=== PATIENT | female | born 1985 | race Caucasian/White ===

== ENCOUNTER 2017-04-22 08:04 | Emergency (ER) | payer OTHER ==
[2017-04-22 11:00] VITALS: BP 108/66
--- NOTE | 2017-04-22 11:01 | UC ---
Abdominal Pain Female HPI - HPI Summary HPI Summary: PT HAS HAD 2 MONTHS OF CRAMPY ABDOMINAL PAIN AND FATIGUE. FEELS BLOATED AND DISTENDED. IS UNABLE TO EAT MUCH DUE TO EARLY SATIETY AND NAUSEA. HAS LOST ABOUT 15 LBS UNINTENTIONALLY. HAS INTERMITTENT NIGHT SWEATS. CONSTIPATED FOR THE SAME PERIOD OF TIME. TOOK EXLAX LAST NIGHT AND HAD A BM BUT NOTHING FOR ABOUT A WEEK PRIOR. NORMALLY GOES DAILY IN THE MORNING. HAS HAD DAILY THROBBING FRONTAL PAULA FOR ABOUT A MONTH. PT HAS MIGRAINES BUT THEY ARE NOT DAILY AND THESE FEEL DIFFERENT. IS HAVING SOME UNUSUAL VAGINAL DISCHARGE AND SEX HAS BECOME INCREASINGLY UNCOMFORTABLE. LAST NIGHT WAS VERY PAINFUL. HAS SOME URINARY FREQUENCY BUT NO DYSURIA. [place] [facility] AND TRIED TO GET IN THERE BUT WAS NOT OFFERRED AN APPT UNTIL JUNE. SHE IS CONCERNED ABOUT CANCER SHE HAS A STRONG FAMILY HISTORY - OVARIAN, BREAST, COLON CANCER. - History of Current Complaint Chief Complaint: UCAbdominalPain Stated Complaint: ABD PAIN Time Seen by Provider: 04/22/17 09:58 Hx Obtained From: Patient Hx Last Menstrual Period: 03/28/17 Onset/Duration: Gradual Onset, Lasting Weeks, Still Present Timing: Constant Severity Initially: Moderate Severity Currently: Moderate Pain Intensity: 3 Pain Scale Used: 0-10 Numeric Location: Diffuse Radiates: No Character: Cramping Aggravating Factor(s): Food Alleviating Factor(s): Nothing Associated Signs and Symptoms: Positive: Diaphoresis, Constipation, Decreased Appetite, Vaginal Discharge, Nausea Allergies/Adverse Reactions: Allergies Allergy/AdvReac Type Severity Reaction Status Date / Time No Known Allergies Allergy Verified 04/22/17 08:30 Home Medications: Home Medications Gabapentin CAP(*) [Neurontin 400 mg CAP(*)] 1,200 mg PO QPM 04/22/17 [History Confirmed 04/22/17] Multivitamin [Multiple Vitamins] 1 tab PO DAILY 04/22/17 [History Confirmed ] Polyethylene Glycol 3350* [Miralax*] 1 packet PO DAILY 04/22/17 [History Confirmed 04/22/17] PMH/Surg Hx/FS Hx/Imm Hx Previously Healthy: Yes - Surgical History Surgical History: Yes Surgery Procedure, Year, and Place: LT BREAST - MASS- BIOPSY W/ CLIP. LT FOOT - BUNIONECTOMY. RHINOPLASTY. 2010 - BREAST IMPLANTS PLACED THEN 2014 - IMPLANTS REMOVED - Family History Family History: OVARIAN, BREAST, COLON CANCER - Social History Alcohol Use: Occasionally Substance Use Type: None Smoking Status (MU): Former Smoker - Immunization History Most Recent Tetanus Shot: UTD Review of Systems Constitutional: Fatigue ENT: Negative Respiratory: Negative Cardiovascular: Negative Gastrointestinal: Abdominal Pain, Nausea, Other - CONSTIPATED, EARLY SATIETY, BLOATING Genitourinary: Frequency Neurological: Headache All Other Systems Reviewed And Are Negative: Yes Physical Exam Triage Information Reviewed: Yes Appearance: Well-Appearing, No Pain Distress, Thin Vital Signs: Initial Vital Signs Temp 98.6 F 04/22/17 08:21 Pulse 85 04/22/17 08:21 Resp 20 04/22/17 08:21 BP 101/66 04/22/17 08:21 Pulse Ox 98 04/22/17 08:21 Vital Signs Reviewed: Yes Eyes: Positive: Conjunctiva Clear ENT: Positive: Hearing grossly normal, Pharynx normal, TMs normal Neck: Positive: Supple, Nontender, No Lymphadenopathy Respiratory Exam: Normal Cardiovascular Exam: Normal Abdomen Description: Positive: Soft, Distended, Other: - TTP LOWER ABDOMEN. NO REBOUND OR RIGIDITY. Negative: CVA Tenderness (R), CVA Tenderness (L) Bowel Sounds: Positive: Present Musculoskeletal: Positive: No Edema Neurological: Positive: Alert Psychological: Positive: Age Appropriate Behavior Skin: Negative: rashes Diagnostics - Laboratory Diagnostic Studies Completed/Ordered: URINE DIP SP. GR. 1.030, TRACE KETONES, TRACE LEUKS. URINE HCG NEG Abd Pain Female Course/Dx - Course Course Of Treatment: TO [facility] BY PRIVATE CAR. TAMIR REYES NOTIFIED - Differential Dx/Diagnosis Provider Diagnoses: LOWER ABDOMINAL PAIN, NOS Discharge - Discharge Plan Condition: Stable Disposition: OTHER Discharge Disposition Comment: TO [facility] BY PRIVATE CAR Patient Education Materials: Abdominal Pain (ED) Referrals: Tala Velasquez [Primary Care Provider] - If Needed Additional Instructions: GIVEN YOUR SYMPTOMS OF WORSENING ABDOMINAL PAIN, BLOATING, WEIGHT LOSS, EARLY SATIETY/NAUSEA, INTERMITTENT SWEATS AND FATIGUE WOULD RECOMMEND YOU GO DIRECTLY TO THE [facility] FROM HERE FOR FURTHER EVALUATION.
== END 2017-04-22 10:58 ==
LOC: UCEAST 08:04
DX: R10.30 Lower abdominal pain, unspecified (principal); N89.8 Other specified noninflammatory disorders of vagina; R11.0 Nausea; R61 Generalized hyperhidrosis; K59.00 Constipation, unspecified; Z32.02 Encounter for pregnancy test, result negative; Z87.891 Personal history of nicotine dependence
CPT/HCPCS: 81003; 84702; 87086; 99212; G0463

== ENCOUNTER 2017-04-22 11:15 | Emergency (ER) | payer OTHER ==
[2017-04-22 11:58] LABS: ABS Basophils 0.1 10^3/ul (0-0.2); ABS Eosinophils 0.1 10^3/ul (0-0.6); ABS Lymphocytes 1.5 10^3/ul (1.0-4.8); ABS Monocytes 0.4 10^3/ul (0-0.8); ABS Neutrophils 2.9 10^3/ul (1.5-7.7); ABS Nucleated RBC 0 10^3/ul; Eosinophil % 2.4 % (0-6); Hematocrit 42 % (35-47); Hemoglobin 14.4 g/dl (12.0-16.0); Lymphocyte % 29.7 % (25-47); Mean Corpuscular HGB Conc 35 g/dl (31-36); Mean Corpuscular Hemoglobin 33 pg (27-31); Mean Corpuscular Volume 96 fL (80-97); Mean Platelet Volume 8 um3 (7.4-10.4); Nucleated Red Blood Cells % 0; Platelet Count 154 10^3/ul (150-450); Red Blood Count 4.36 10^6/ul (4.0-5.4); Red Cell Distribution Width 13 % (10.5-15)
[2017-04-22 12:13] LABS: EGFR Non-African American 70.3 (>60)
--- NOTE | 2017-04-22 13:22 | ED ---
Abdominal Pain/Female - HPI Summary HPI Summary: 32 female presents to ED with complaints of lower abdominal discomfort and bloating that has been ongoing for the past few months. States she has not had a normal bowel movement in the past few months, only has very small, infrequent bowel movements. 2 days ago was last, and it was small. Denies blood. States lower abdominal pain feels like cramping "like menses" but isn't. States last menstrual cycle was mar 28 and she is taking OCP. Took urine and was negative. No vaginal bleeding or discharge, other than a clear discharge. States she came in today because she had pain with sex last night. Dempsey became sharp and last a half hour or so. Admits to urinary urgency and frequency however no burning, blood or discharge. No known PMHx other than migraine and guilliane barre however has not had flare in a while. Migraines have been more frequent and increasing symptoms lately, of side noted. No medications have been tried other than preventative meds she takes daily for migraine. No other complaints. No PMHx. Denies vomiting, nausea and fever/chills. States she has decreased appetite due to feeling so bloated and "like my stomach is 16 weeks ". Also states she has lost weight. No recent trauma or injury. - History of Current Complaint Chief Complaint: EDAbdPain Stated Complaint: ABD PAIN-CC TRANSFER Time Seen by Provider: 04/22/17 11:27 Hx Obtained From: Patient Hx Last Menstrual Period: 03/28/17 ?: No Onset/Duration: Sudden Onset, Lasting Weeks, Still Present, Worse Since Timing: Constant Severity Initially: Mild Severity Currently: Mild Pain Intensity: 2 Pain Scale Used: 0-10 Numeric Location: Suprapubic Radiates: No Character: Sharp - 30 minutes yesterday then resolved, Cramping Aggravating Factor(s): Nothing, Food, Other: - sex Alleviating Factor(s): Nothing, Spontaneous Resolution Associated Signs and Symptoms: Positive: Constipation, Urinary Symptoms - urgency, Decreased Appetite. 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 LT FOOT - BUNIONECTOMY. RHINOPLASTY. 2010 - BREAST IMPLANTS PLACED THEN 2013 - IMPLANTS REMOVED - Immunization History Immunizations Up to Date: Yes Infectious Disease History: No Infectious Disease History: Reports: Traveled Outside the [place] in Last 30 Days - Family History Known Family History: Positive: None - reviewed & noncontributory Family History: OVARIAN, BREAST, COLON CANCER - Social History Alcohol Use: Occasionally Hx Substance Use: No Substance Use Type: Reports: None Hx Tobacco Use: Yes - 03/03 ppd Smoking Status (MU): Former Smoker Review of Systems Constitutional: Negative Cardiovascular: Negative Respiratory: Negative Positive: Abdominal Pain, Other - constipation Positive: see HPI, frequency, urgency, other - dysparenuia Musculoskeletal: Negative Skin: Negative Neurological: Negative All Other Systems Reviewed And Are Negative: Yes Physical Exam Triage Information Reviewed: Yes Vital Signs On Initial Exam: Initial Vitals Temp Pulse Resp BP Pulse Ox 97.9 F 73 18 114/69 100 04/22/17 11:18 04/22/17 11:18 04/22/17 11:18 04/22/17 11:18 04/22/17 11:18 Vital Signs Reviewed: Yes Appearance: Positive: Well-Appearing, No Pain Distress, Well-Nourished Skin: Positive: Warm, Skin Color Reflects Adequate Perfusion, Dry. Negative: Cold, Numb, Cyanosis @, Pale, Erythema @ Head/Face: Positive: Normal Head/Face Inspection ENT: Positive: Hearing grossly normal, Pharynx normal, TMs normal, Uvula midline. Negative: Tonsillar swelling, Tonsillar exudate, Sinus tenderness Neck: Positive: Supple, Nontender, No Lymphadenopathy Respiratory/Lung Sounds: Positive: Clear to Auscultation, Breath Sounds Present. Negative: Rales, Rhonchi, Wheezes Cardiovascular: Positive: Normal, RRR, Pulses are Symmetrical in both Upper and Lower Extremities. Negative: Murmur, Rub Abdomen Description: Positive: Distended, Other: - tender upon palpation of suprapubic area. Negative: No Organomegaly, Soft, CVA Tenderness (R), CVA Tenderness (L), Guarding, McBurney's Point Tenderness, Peritoneal Signs Bowel Sounds: Positive: Present Pelvic Exam: Positive: external exam normal, speculum exam normal, bimanual exam normal, no cerv. motion tender, no masses, tender uterus. Negative: active bleeding, blood, cervicitis, discharge, lesions, tender adnexa Musculoskeletal: Positive: Normal, Strength/ROM Intact Neurological: Positive: Normal, Sensory/Motor Intact, Alert, Oriented to Person Place, Time Diagnostics - Vital Signs Vital Signs Temp Pulse Resp BP Pulse Ox 04/22/17 11:18 97.9 F 73 18 114/69 100 - Laboratory Lab Results: Lab Results 04/22/17 04/22/17 04/22/17 Range/Units 11:44 11:44 11:44 WBC 5.0 (3.5-10.8) 10^3/ul RBC 4.36 (4.0-5.4) 10^6/ul Hgb 14.4 (12.0-16.0) g/dl Hct 42 (35-47) % MCV 96 (80-97) fL MCH 33 H (27-31) pg MCHC 35 (31-36) g/dl RDW 13 (10.5-15) % Plt Count 154 (150-450) 10^3/ul MPV 8 (7.4-10.4) um3 Neut % (Auto) 58.3 (38-83) % Lymph % (Auto) 29.7 (25-47) % [place] % (Auto) 8.2 H (0-7) % Eos % (Auto) 2.4 (0-6) % Baso % (Auto) 1.4 (0-2) % Absolute Neuts (auto) 2.9 (1.5-7.7) 10^3/ul Absolute Lymphs (auto) 1.5 (1.0-4.8) 10^3/ul Absolute Monos (auto) 0.4 (0-0.8) 10^3/ul Absolute Eos (auto) 0.1 (0-0.6) 10^3/ul Absolute Basos (auto) 0.1 (0-0.2) 10^3/ul Absolute Nucleated RBC 0 10^3/ul Nucleated RBC % 0 Sodium 137 (133-145) mmol/L Potassium 4.0 (3.5-5.0) mmol/L Chloride 104 (101-111) mmol/L Carbon Dioxide 25 (22-32) mmol/L Anion Gap 8 (2-11) mmol/L BUN 13 (6-24) mg/dL Creatinine 0.93 (0.51-0.95) mg/dL Est GFR ( Amer) 90.4 (>60) Est GFR (Non-Af Amer) 70.3 (>60) BUN/Creatinine Ratio 14.0 (8-20) Glucose 82 (70-100) mg/dL Lactic Acid 0.5 (0.5-2.0) mmol/L Calcium 9.5 (8.6-10.3) mg/dL Total Bilirubin 0.80 (0.2-1.0) mg/dL AST 18 (13-39) U/L ALT 12 (7-52) U/L Alkaline Phosphatase 36 (34-104) U/L C-Reactive Protein < 1.00 (< 5.00) mg/L Total Protein 7.5 (6.4-8.9) g/dL Albumin 4.7 (3.2-5.2) g/dL Globulin 2.8 (2-4) g/dL Albumin/Globulin Ratio 1.7 (1-3) Lipase 22 (11.0-82.0) U/L Beta HCG, Quant < 0.60 mIU/mL Result Diagrams: 04/22/17 11:44 04/22/17 11:44 Lab Statement: Any lab studies that have been ordered have been reviewed, and results considered in the medical decision making process. - Radiology abdomen Xray Interpretation: No Acute Changes - Flat and upright views of the abdomen demonstrates no free air. Hepatomegaly is noted. No dilated loops of bowel are noted. IMPRESSION: No free air or obstruction is noted. Stool throughout colon Radiology Interpretation Completed By: Radiologist - Ultrasound No standard instances Ultrasound Interpretation: No Acute Changes - Flat and upright views of the abdomen demonstrates no free air. Hepatomegaly is noted. No dilated loops of bowel are noted. IMPRESSION: No free air or obstruction is noted. Ultrasound Interpretation Completed By: Radiologist Re-Evaluation - Re-Evaluation First Eval Re-Evaluation Time: 14:30 Change: Unchanged - updated on labs and imaging, pelvic preformed. discussed possibility of diagnoses. agrees with plan and treatment Second Eval Re-Evaluation Time: 15:00 Abdominal Pain Fem Course/Dx - Course Course Of Treatment: ultrasound and xray obtained and negative other than pelvic congestion sydndrome and small left ovarian cyst. labs obtained and completely unremarkable. no medication given while in ED. pelvic exam preformed and normal. normal vitals. pelvic cultures obtained and pending results, just had STD testing and therefore did not need them repeated. normal exam otherwise. does appear bloated. some stool build up in abdominal xray noted. labs unremarkable. urinalysis unremarkable will await culture. no other complaints. no other emergent concerns at this time. did educate on pelvic congestion syndrome, constipation and further work up with GI for possible food allergy/sensitivity/IBS. aware of worsening signs and symptoms to watch out for. follow up, return if occur. could be multiple etiologies causing symptoms. will give lactulose to help with constipation, gas, bloating. educated on good diet and decreasing use of caffeine. - Diagnoses Differential Diagnosis: Positive: Constipation, Irritable Bowel Syndrome, Ovarian Cyst, Urinary Tract Infection, Other - IBS, pelvic congestion syndrome, dysparenuia Provider Diagnoses: Constipation, Bloating, Pelvic congestion syndrome, Dyspareunia Discharge - Discharge Plan Condition: Stable Disposition: HOME Prescriptions: Lactulose* 30 ml PO DAILY #3 bottle Patient Education Materials: Lactulose (By mouth), Constipation (DC), High Fiber Diet (ED), Fleet Enema (ED) Referrals: Tala Velasquez [Primary Care Provider] - Calvin Lange MD [Medical Doctor] - Harshad Morel MD [Medical Doctor] - Freddie Collins MD [Medical Doctor] - Additional Instructions: Please follow up with specialist for further testing at OBGYN (pelvic congestion syndrome), neuro (worsening migraines) and GI for troubles with bowels, bloating and appetite issues). Recommend increase fluid intake, avoiding caffeine and eating a high fiber diet to help with bowels. Try taking prescribed medication to help with constipation, may take a few days before working. Continue daily probiotic and eating vietnamese yogurt. Any new or worsening symptoms please return/seek medical attention promptly. Follow up with PCP.
--- NOTE | 2017-04-22 13:39 | RAD ---
Indication: Lower abdominal cramping. Flat and upright views of the abdomen demonstrates no free air. Hepatomegaly is noted. No dilated loops of bowel are noted. IMPRESSION: No free air or obstruction is noted.
[2017-04-22 13:50] LABS: Urine Appearance Clear; Urine Blood Negative (Negative); Urine Color Yellow; Urine Ketones 2+ (Negative); Urine Protein Negative (Negative); Urine Specific Gravity 1.023 (1.010-1.030); Urine Urobilinogen Negative (Negative)
--- NOTE | 2017-04-22 14:18 | RAD ---
INDICATION: Cramping dyspareunia. COMPARISON: There are no prior studies available for comparison. TECHNIQUE: Multiple real-time transvaginal images of the pelvis were obtained. FINDINGS: The uterus is normal in size, shape and echogenicity. The uterus measured 7.7 x 3.7 x 4.3 cm. The endometrial echo measured 0.5 cm in thickness. The right ovary measured 3.2 x 1.7 x 2.1 cm. The left ovary measured 4.1 x 2.2 x 2.3 cm. There is vascular flow within both ovaries. There is a complex cyst within the left ovary measuring 2.1 x 1.7 x 1.7 cm. There is a trace amount of free intraperitoneal fluid present. There are prominent vessels along the left lateral side of the uterus. IMPRESSION: 1. SMALL COMPLEX LEFT OVARIAN CYST. 2. PROMINENT PERIUTERINE VESSELS ON THE LEFT SIDE RAISING THE POSSIBILITY OF PELVIC CONGESTION SYNDROME.
[2017-04-22 15:43] VITALS: BP 94/66
== END 2017-04-22 15:39 | disposition home or self-care (01) ==
LOC: ED 11:15
DX: K59.00 Constipation, unspecified (principal); R14.0 Abdominal distension (gaseous); N94.89 Other specified conditions associated with female genital organs and menstrual cycle; N94.10 Unspecified dyspareunia; Z87.891 Personal history of nicotine dependence; N83.202 Unspecified ovarian cyst, left side; Z79.899 Other long term (current) drug therapy
CPT/HCPCS: 36415; 74019; 76830; 80053; 81003; 81015; 83605; 83690; 84702; 85025; 86140; 87480; 87510; 87660; 99283

== ENCOUNTER → 2017-07-19 07:58 | Day surgery (SDC) | payer OTHER ==
[~2017-07-19 07:58] MED LIST: Heparin 2 UNITS/ML IVPREMIX* 2,000 ML IV ONE; Iohexol 350 (CONTRAST) 200 ML MDV IV ONE; Ketorolac TAB * 10 MG TAB PO ONE; LORazepam TAB(*) 1 MG ONE; LORazepam TAB(*) 1 MG PO ONE; Lidocaine 1% INJ* 10 MG/ML 30 ML SDV ONE; Midazolam* 1 MG/ML 5 ML VIAL (5 MG) ONE; Polidocanol 1% 20 MG/2 ML AMP IV ONE; Scopolamine 1.5 mg* PATCH ONE; Scopolamine 1.5 mg* PATCH TRANSDERM ONE; ceFAZolin 1 GM* X ONE DOSE IVPB; fentaNYL* 50 MCG/ML 2 ML VIAL (100 MCG VIAL) ONE
[2017-07-19 09:04] LABS: ABS Basophils 0 10^3/ul (0-0.2); ABS Eosinophils 0.1 10^3/ul (0-0.6); ABS Monocytes 0.3 10^3/ul (0-0.8); ABS Neutrophils 1.5 10^3/ul (1.5-7.7); ABS Nucleated RBC 0 10^3/ul; Eosinophil % 3.9 % (0-6); Hematocrit 39 % (35-47); Hemoglobin 13.2 g/dl (12.0-16.0); Lymphocyte % 33.9 % (25-47); Mean Corpuscular HGB Conc 34 g/dl (31-36); Mean Corpuscular Hemoglobin 32 pg (27-31); Mean Corpuscular Volume 94 fL (80-97); Mean Platelet Volume 8.2 um3 (7.4-10.4); Nucleated Red Blood Cells % 0.1; Platelet Count 137 10^3/ul (150-450); Red Blood Count 4.09 10^6/ul (4.0-5.4); Red Cell Distribution Width 12 % (10.5-15); White Blood Count 2.9 10^3/ul (3.5-10.8)
[2017-07-19 09:12] LABS: INR 0.89 (0.77-1.02)
[2017-07-19 09:22] LABS: EGFR Non-African American 68.6 (>60)
--- NOTE | 2017-07-19 13:16 | PN ---
Progress Note - Progress Note Date of Service: 07/19/17 SOAP: Subjective: Mild pelvic cramping (2/10). No nausea. No shortness of breath or chest pain. Eating lunch. Sitting up. Objective: BP 113/69, pulse 60, resp 14, 98% (room air) NAD, AAO x 3 RRR, CTAB Right IJ venotomy is soft, minimally tender Dressing is CDI Mild tenderness elicited with palpation over low abdomen Assessment: 32 YOF s/p pelvic venography, cavogram, foam sclerosant embolization of left pelvic varicose veins and coil embolization of the refluxing left ovarian vein. Plan: 1. D/C to home. 2. Scopolamine patch to mastoid process to remain until 07/22/17 3. Toradol 5 mg po Q 8 hours x 3 days. 4. Interventional Radiology follow up will include RN call in 48 hours and clinic visit in 6 weeks and 6 months.
--- NOTE | 2017-07-19 15:34 | RAD ---
CPT II Codes: G9500 Procedure(s) performed: 1. Inferior vena cavogram. 2. Pelvic venography, specifically including the left renal vein, left ovarian vein and parauterine varicose veins. 3. Foam sclerosant embolization of pelvic varicose veins. 4. Coil embolization of the left ovarian vein. Date of service: July 19, 2017 Indication for procedure: Chronic, gravity dependent pelvic pain and dyspareunia characteristic of pelvic congestion syndrome. Comparison: MRV dated June 28, 2017 and pelvic ultrasound dated April 22, 2017 Contrast: 40 mL Omnipaque 300 Fluoroscopy Time: 12.3 minutes Vessels Accessed: Percutaneous access was obtained with ultrasound guidance in the right internal jugular vein in the antegrade direction towards the heart. Catheter venography, with the catheter tip located within the lumen of the following veins, was performed at the inferior vena cava, left renal vein, left ovarian vein and parauterine pelvic varicose veins. . Anesthesia: Conscious sedation with IV Fentanyl and Versed as well as local 1% lidocaine injected locally at the arteriotomy site. Conscious sedation time: Timeout: 1029 hours Case end: 1136 hours Total conscious sedation time: 1 hour and 7 minutes Additional medications: * Toradol 5 mg PO * Scopolamine 1.5 mg TD applied to the mastoid process * The patient received 1 mg of p.o. Ativan prior to the onset of the procedure. PROCEDURE NOTE AND INTRAPROCEDURAL IMAGING FINDINGS: Immediately prior to the procedure the patient signed consent after thoroughly discussing all risks, benefits and alternative therapies. The patient was positioned on the fluoroscopy table in the supine position and the right neck was prepped and draped according to standard sterile fashion. The bilateral groins were shaved and prepped and draped as well. Utilizing sonographic guidance, the right internal jugular vein was cannulated with an 18-gauge needle. An ultrasound image was saved. A 0.035" wire was slowly and smoothly advanced into the inferior vena cava under fluoroscopic imaging. With the wire securing percutaneous venous access, the needle was removed and a 5-Gambian SideArm access sheath was advanced under fluoroscopic control into the superior vena cava in the antegrade direction towards the heart securing access. Over the wire a 5-Gambian curved tip catheter was utilized to select the left renal vein. Utilizing a combination of 0.035" wire and 5-Gambian catheter the left renal vein was cannulated. The wire and catheter were then utilized to select the left ovarian vein and the wire was advanced to the lower pelvis. The catheter was advanced over the wire, the wire removed and the first of several pelvic venograms was performed confirming the presence of large pelvic varicose veins. Multiple large periuterine veins were seen with a small degree of flow from the left pelvis to the right. Much of the contrast injected was observed to stagnate in the pelvic varicose veins as the patient laid in the supine position. The short 5-Gambian sheath was exchanged for a 55 cm length, 5-Gambian sheath which was advanced under fluoroscopic control approximately to the junction of the left renal vein and left ovarian vein. A left renal venogram was performed through the side arm of the access sheath confirming caudal flow of venous blood from the renal vein down the ovarian vein and into pelvic varicosities. There appears to be adequate flow in the left renal vein which drains briskly into the IVC body caudal reflux down the left ovarian vein (again, the patient is in the supine position) was observed as well. There is no evidence of "nutritionalist syndrome". Over the wire a 4-Gambian curved tip catheter was advanced into the left periuterine varicose veins. At this point 2 mL Polidocanol 1% (Asclera) was mixed with a quantity of approximately 8 mL of air and utilizing a three-way stopcock the material was converted to foam sclerosant. Undiluted contrast was injected into the 4-Gambian catheter filling the pelvic varicosities with a volume of approximately 5 mL. Rapidly, the foam sclerosant was attached to the catheter and the recently injected contrast was displaced with an approximately equal volume of foam sclerosant. The 4-Gambian catheter was slowly retracted approximately 2 cm at a time and progressive stenosis and sclerosing of the left pelvic varicosities was observed. The process of injecting dilute contrast and then displacing the contrast with an approximate equal volume of foam sclerosant was repeated until the tip of the 4-Gambian catheter was at the lower margin of the left sacroiliac joint. At no time during the procedure to the patient report any chest pain, shortness of breath or acute change of mental status. After waiting approximately 3 minutes, contrast gently injected in the left ovarian vein approximately at the level of the lower quarter SI joint shows reduction in volume of the pelvic varicosities status post foam sclerosant injection. The 4-Gambian catheter was exchanged for a 5-Gambian curved tip catheter and this catheter was used to deploy metallic coils beginning just above the lower margin of the left SI joint extending to the mid-level L4 vertebral body. A small amount of flow was still seen in the main ovarian vein. Contrast injection at the L3 level as well as filling of small varicoid collateral veins around the left ovarian vein. Further coil embolization was performed with attention to occlude the collateralized varicose veins extending from the left ovarian vein. A total of four [employer] Interlock coils were deployed beginning at the level just above the lower margin of the left sacroiliac joint extending to just below the level of the superior endplate of the L3 vertebral body. The column of coils was created to approximately 2.9cm below the branch point with the left renal vein. At this point venography through the side arm of the sheath, the tip now in the left renal vein immediately superior to the origin of the left ovarian vein, demonstrated brisk flow through the renal vein into the inferior vena cava. There is no venous flow caudally down the ovarian vein or any other collateral branch veins. Satisfied that the left ovarian vein had been treated, the access sheath was repositioned to the tip was approximately at the level of the inferior endplate of the L3 vertebral body and a cavogram was performed showing the IVC to be briskly patent. There is no reflux in the right ovarian vein. In the bilateral pelvis there is trace filling of small veins but these do not appear to lead to any substantial filling of pelvic varicosities. It was determined at this point that embolization was sufficient and the 5-Gambian SideArm sheath. Gentle manual pressure was held at the right internal jugular venotomy site for approximately 7 minutes. Bleeding was controlled and the site was dressed with sterile gauze. The patient tolerated the procedure well and was transferred to interventional radiology holding bay for standard post procedural observation. SUMMARY OF PROCEDURE, IMAGING FINDINGS AND INTERVENTIONS PERFORMED: 1. Diagnostic studies performed: * Venous access was obtained at the right internal jugular vein in the antegrade direction (i.e. towards the heart) with ultrasound guidance. A sonographic image was recorded. * Diagnostic catheter venography (necessary to accurately perform the appropriate interventions) was performed with the catheter tip in the inferior vena cava, left renal vein, left ovarian vein and parauterine pelvic varicose veins. * Catheter venography was performed of the inferior vena cava, left renal vein, right renal vein, left ovarian vein and parauterine pelvic varicose veins. 2. Interpretation of diagnostic studies performed: * Pathologic caudal venous flow from the left renal vein, down the left ovarian vein filling the patient's periuterine varicose veins. * No pathologic venous reflux was identified in the right ovarian vein origin of the branches of the bilateral internal iliac veins. * There is trace retrograde filling at the final cavogram in small 3 mm veins in the bilateral pelvis. These do not communicate with any large pelvic varicosities and were not deemed large enough for embolization at this time. 3. Surgical interventions performed: * Catheter directed foam sclerosant embolization of the parauterine varicose veins and the distal most portions of the left ovarian vein. * Coil embolization of the left ovarian vein utilizing the following coils: Four [place] [employer] interlock coils, sizes 8 mm x 20 cm, 8 mm x 14 cm, 12 mm x 40 cm and 10 mm x 20 cm. 4. Interpretation of interventions performed: * Final venography demonstrated occlusion of the parauterine varicose veins and no caudal venous reflux into the pelvis from the coil embolized left ovarian vein. * After embolizing the periuterine varicose veins and left ovarian vein, there is brisk patent flow in the left renal vein in the cephalad direction into the IVC and towards the heart. * Two small 3 mm veins are seen filling weakly in the bilateral pelvis on the final cavogram. These were not deemed large enough for embolization at this time. Plan: 1. Toradol 5 mg p.o. Q 6 hours x 3 days. 2. The patient continues to experience abdominal pelvic discomfort, Toradol can be followed with ibuprofen 400-600 mg p.o. Q 6 hours x 3 additional days. 3. Standard Interventional Radiology follow-up will include clinic RN call approximately 48 hours post procedure and six-week and six-month clinic follow-up appointments.
== END | disposition home or self-care (01) ==
LOC: CHICATH 07:58
PROVIDERS: ATTEND Radiology Diagnostic Radiology
DX: I86.2 Pelvic varices (principal); N94.10 Unspecified dyspareunia; N94.89 Other specified conditions associated with female genital organs and menstrual cycle; E04.1 Nontoxic single thyroid nodule; Z87.891 Personal history of nicotine dependence
CPT/HCPCS: 36415; 80048; 84702; 85025; 85610; 85730; A9270-GY; J0690; J1644; J2250; J3010

== ENCOUNTER 2018-03-10 08:45 | Inpatient (IN) | payer OTHER ==
[2018-03-10] MEDS: Betamethasone INJ* 6 MG/ML 5 ML VIAL (30 MG) IM ONE ×2 (09:20→11:45)
[2018-03-10] MEDS ORDERED: Azithromycin TAB* 250 MG PO ONE (10:18)
[2018-03-10] MEDS ORDERED: Lactated Ringers 1000 ML Bag* 1,000 ML IV ONE (10:33)
[2018-03-10] MEDS ORDERED: Buffered Lidocaine 1% SYRIN* 1 ML/SYRINGE INTRADERM ONE (10:33)
--- NOTE | 2018-03-10 10:52 | HP ---
General Information - Reason for Visit contractions 33 5/7 weeks - General Information Maternal Age: 33 Grav: 2 Para: 1 SAB: 0 IEA: 0 Estimated Due Date: 04/23/18 Determined By: LMP Maternal Blood Type and Rh: B Positive - Results this Serology/RPR Result: Non-Reactive Rubella Result: Immune HBsAg Result: Negative HIV Result: Negative Past Medical History Delivery History: See Records Pertinent Past Medical History: See Records Pertinent Past Surgical History: See Records Pertinent Family History: See Records - Antepartal Records Antepartal Records: Reviewed, Complicated by: - B12/Iron deficiency Review of Systems Constitutional: Comfortable CV Complaint: No Respiratory: Shortness of Breath: No Gastrointestinal: No Nausea/Vomiting Genitourinary: Leaking Fluid, No Dysuria, No Bleeding Musculoskeletal: Back Pain Neurological: No Headache Movement: Normal Exam Allergies/Adverse Reactions: Allergies No Known Allergies Allergy (Verified 03/09/18 15:54) Vital Signs 03/10/18 09:00 Temperature 98.4 F Pulse Rate 86 Respiratory 20 Rate Blood Pressure 116/64 (mmHg) Lab Values - Entire Visit: Laboratory Tests 03/10/18 09:30 Vag Amniotic Fld Detect Positive - Measurements Height: 5 ft 8 in Weight: 150 lb Weight in lbs: 150.691786 Body Mass Index (BMI): 22.8 Pre- Weight: 117 lb Weight Gained This : 33 lbs and 0 ozs - Exam Breast: Breast Exam Deferred CVA: No CVA Tenderness Extremities: No Edema Heart: Normal Rhythm/Heart Sounds HEENT: No Significant Findings Lungs: Clear Bilaterally Rectal: Rectal Exam Deferred Reflexes: DTR 2+ Thyroid: No Thyromegaly - Abdominal Exam Abdomen Exam: Non-Tender - Ultrasound/Biophysical Profile Ultrasound Status: Radiology Department Full Exam Targeted Exam Findings See L&D Outpatient Visit Provider Note for Findings: Yes Cervical Exam: 4cm Effacement: 50% Station: -2 Presenting Part: Vertex Membrane Status: Leaking Amniotic Fluid Evaluation: Positive ROM Plus EFM Findings - External Monitor Findings Baseline Heart Rate: 140 External Monitor Findings: Accelerations Present, No Pattern of Variable or Late Decelerations, Variability Moderate Contractions: Irregular Assessment/Plan - Assessment Pt 33 yo with premature rupture of membranes - Obstetrical Risk Factors Obstetrical Risk Factors: GBS Unknown, - Plan Plan: IV Hydration, Antibiotic Prophylaxis - Pt 33 with Prom/ pt is on second dose of steroids.Pt to receive azithromaz 1 gm po and IV ampicillin 2 gm every 6 hours .Pt to meet machine compositor for review of risk of prematurity. Pt has received X 2 doses of betamethasone last dose given this AM. Pt with both iron deficiency and B12 deficinecy/ will coordiante dosing with hematology.
[2018-03-10] MEDS ORDERED: ValACYclovir (*) 500 MG TAB PO ONE (11:00)
[2018-03-10] MEDS ORDERED: Cyanocobalamin INJ * 1,000 MCG/ML VIAL 1 ML VIAL IM ONE (11:02)
[2018-03-10] MEDS: Lactated Ringers 1000 ML Bag* 1,000 ML IV SCH (11:10)
[2018-03-10 11:14] LABS: ABS Basophils 0 10^3/ul (0-0.2); ABS Eosinophils 0 10^3/ul (0-0.6); ABS Lymphocytes 1.2 10^3/ul (1.0-4.8); ABS Monocytes 0.8 10^3/ul (0-0.8); ABS Neutrophils 10.1 10^3/ul (1.5-7.7); ABS Nucleated RBC 0 10^3/ul; Eosinophil % 0.1 %; Hematocrit 31 % (35-47); Hemoglobin 10.3 g/dl (12.0-16.0); Lymphocyte % 10.2 %; Mean Corpuscular HGB Conc 33 g/dl (31-36); Mean Corpuscular Hemoglobin 31 pg (27-31); Mean Corpuscular Volume 95 fL (80-97); Mean Platelet Volume 8.1 fL (7.4-10.4); Nucleated Red Blood Cells % 0; Platelet Count 191 10^3/ul (150-450); Red Cell Distribution Width 15 % (10.5-15); White Blood Count 12.2 10^3/ul (3.5-10.8)
[2018-03-10 11:55] LABS: Urine Appearance Cloudy; Urine Bacteria 1+ (Absent); Urine Bilirubin Negative (Negative); Urine Blood 3+ (Negative); Urine Color Yellow; Urine Glucose 1+(50 mg/dL) (Negative); Urine Ketones Negative (Negative); Urine Nitrite Negative (Negative); Urine Protein Negative (Negative); Urine Red Blood Cell 1+(3-5/hpf) (Absent); Urine Specific Gravity 1.014 (1.010-1.030); Urine Urobilinogen Negative (Negative); Urine White Blood Cell Trace(0-5/hpf) (Absent)
[2018-03-10] MEDS: Ampicillin ADVAN(*) 2 GM in NS 0.9% 100 ML* 100 ML IVPB SCH ×2 (12:49→18:10)
[2018-03-10] MEDS ORDERED: Acetaminophen TAB* 325 MG PO PRN (13:26)
[2018-03-10] MEDS ORDERED: PROCHLORPERAZINE INJ 5 MG/ML 2 ML VIAL IV ONE (17:00)
[2018-03-10] MEDS: ASPIRIN PO PRN (19:26)
[2018-03-10] MEDS: ACETAMINOPHEN PO PRN (19:26)
[2018-03-10] MEDS: CAFFEINE PO PRN (19:26)
[2018-03-11] MEDS: Ampicillin ADVAN(*) 2 GM in NS 0.9% 100 ML* 100 ML IVPB SCH ×4 (00:30→18:16)
[2018-03-11] MEDS ORDERED: Sodium Citrate/Citric Acid* 15 ML UDC ONE (01:24)
[2018-03-11] MEDS: CAFFEINE PO PRN (01:25)
[2018-03-11] MEDS: ACETAMINOPHEN PO PRN (01:25)
[2018-03-11] MEDS: ASPIRIN PO PRN (01:25)
[2018-03-11] MEDS ORDERED: diPHENhydraMINE PO* 50 MG PO ONE (06:24)
[2018-03-11] MEDS ORDERED: diPHENhydraMINE PO* 50 MG ONE (06:27)
[2018-03-11] MEDS ORDERED: Famotidine TAB* 20 MG PO PRN (12:48)
[2018-03-11] MEDS ORDERED: Sodium Citrate/Citric Acid* 15 ML UDC PO PRN (12:48)
--- NOTE | 2018-03-11 14:44 | PN ---
Progress Note - Progress Note Date of Service: 03/11/18 SOAP: Subjective: Pt at 33+6 wks EGA with documented PPROM yesterday. Betamethasone started prior to admission due to possible PTL. Now on IV ampicillin for 48 hours and then amoxicillin for the remaining 5 days. Pt reports active FMs, no VB, some continued leakage. She has been having some cramping and possible ctx today, but not regular or very painful at this point. Objective: VS normal, afebrile Gen: NAD, comfortable Abd soft, gravid, nontender. NST reactive, no decels, +accels, Baseline 135 [place]: no visible ctx Assessment: 33+6 wks with PPROM, s/p steroids (2nd dose 24 hrs ago), very reassuring status, no e/o infection or labor right now. Plan: Discussed plan at length including both ACOG and UpToDate recommendations/ opinions. We reviewed the risks and benefits of both delivery at 34 wks vs continued as long as 37 wks. Considering her situation (cervix 3cm dilated), I tend to doubt she will stay more than a week or so, but I urged her to have a plan she could be comfortable with. After discussion, pt will likely want to plan induction around 35 wks. She will be done with abx at that point. She understands we will recommend delivery if there is any evidence of infection or concerns. 25 min of counseling with pt today.
[2018-03-11] MEDS: DOXYLAMINE SUCCINATE 25 MG PO PRN (19:01)
[2018-03-11] MEDS ORDERED: diPHENhydraMINE PO* 50 MG PO SCH (21:00)
[2018-03-11] MEDS: ValACYclovir (*) 1 GM TAB PO SCH (21:44)
[2018-03-11] MEDS ORDERED: NS 0.9% 100 ML* 0 ML ONE (23:53)
[2018-03-12] MEDS: Ampicillin ADVAN(*) 2 GM in NS 0.9% 100 ML* 100 ML IVPB SCH ×4 (00:04→17:30)
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
[2018-03-12] MEDS: Amoxicillin PO (*) 875 MG TAB PO SCH (20:56)
[2018-03-12] MEDS: ValACYclovir (*) 1 GM TAB PO SCH (20:56)
[2018-03-12] MEDS: DOXYLAMINE SUCCINATE 25 MG PO PRN (20:57)
[2018-03-13 08:28] LABS: ABS Basophils 0 10^3/ul (0-0.2); ABS Eosinophils 0.1 10^3/ul (0-0.6); ABS Lymphocytes 2.1 10^3/ul (1.0-4.8); ABS Monocytes 1.2 10^3/ul (0-0.8); ABS Neutrophils 6.6 10^3/ul (1.5-7.7); ABS Nucleated RBC 0 10^3/ul; Eosinophil % 0.6 %; Hematocrit 32 % (35-47); Hemoglobin 10.7 g/dl (12.0-16.0); Lymphocyte % 21.2 %; Mean Corpuscular HGB Conc 33 g/dl (31-36); Mean Corpuscular Hemoglobin 31 pg (27-31); Mean Corpuscular Volume 94 fL (80-97); Mean Platelet Volume 7.6 fL (7.4-10.4); Nucleated Red Blood Cells % 0; Platelet Count 198 10^3/ul (150-450); Red Blood Count 3.42 10^6/ul (4.00-5.40); Red Cell Distribution Width 15 % (10.5-15); White Blood Count 10.1 10^3/ul (3.5-10.8)
[2018-03-13] MEDS: Amoxicillin PO (*) 875 MG TAB PO SCH ×2 (08:51→20:09)
[2018-03-13] MEDS: ValACYclovir (*) 1 GM TAB PO SCH (20:09)
[2018-03-13] MEDS: DOXYLAMINE SUCCINATE 25 MG PO PRN (20:09)
[2018-03-14] MEDS: Amoxicillin PO (*) 875 MG TAB PO SCH ×2 (09:25→21:26)
--- NOTE | 2018-03-14 09:52 | PN ---
Progress Note - Progress Note Date of Service: 03/14/18 SOAP: Subjective: [Patient is a 33 y/o admitted with PPROM, EGA today 34 2/7 weeks. She denies fever, chillss, malaise, abdominal pain or regular contractions. Admitted to episode of blood tinged discharge this am, but no active bleeding.] Objective: [ Vital Signs Temp Pulse Resp BP Pulse Ox 98.8 F 85 16 110/58 03/14/18 06:30 03/14/18 00:44 03/13/18 19:41 03/14/18 00:44 Laboratory Last Values WBC 10.1 10^3/ul (3.5-10.8) 03/13/18 08:05 RBC 3.42 10^6/ul (4.00-5.40) L 03/13/18 08:05 Hgb 10.7 g/dl (12.0-16.0) L 03/13/18 08:05 Hct 32 % (35-47) L 03/13/18 08:05 MCV 94 fL (80-97) 03/13/18 08:05 MCH 31 pg (27-31) 03/13/18 08:05 MCHC 33 g/dl (31-36) 03/13/18 08:05 RDW 15 % (10.5-15) 03/13/18 08:05 Plt Count 198 10^3/ul (150-450) 03/13/18 08:05 MPV 7.6 fL (7.4-10.4) 03/13/18 08:05 Neut % (Auto) 65.5 % 03/13/18 08:05 Lymph % (Auto) 21.2 % 03/13/18 08:05 [place] % (Auto) 12.3 % 03/13/18 08:05 Eos % (Auto) 0.6 % 03/13/18 08:05 Baso % (Auto) 0.4 % 03/13/18 08:05 Absolute Neuts (auto) 6.6 10^3/ul (1.5-7.7) 03/13/18 08:05 Absolute Lymphs (auto) 2.1 10^3/ul (1.0-4.8) 03/13/18 08:05 Absolute Monos (auto) 1.2 10^3/ul (0-0.8) H 03/13/18 08:05 Absolute Eos (auto) 0.1 10^3/ul (0-0.6) 03/13/18 08:05 Absolute Basos (auto) 0 10^3/ul (0-0.2) 03/13/18 08:05 Absolute Nucleated RBC 0 10^3/ul 03/13/18 08:05 Nucleated RBC % 0 03/13/18 08:05 Urine Color Yellow 03/10/18 11:13 Urine Appearance Cloudy 03/10/18 11:13 Urine pH 6.0 (5-9) 03/10/18 11:13 Ur Specific [place] 1.014 (1.010-1.030) 03/10/18 11:13 Urine Protein Negative (Negative) 03/10/18 11:13 Urine Ketones Negative (Negative) 03/10/18 11:13 Urine Blood 3+ (Negative) A 03/10/18 11:13 Urine Nitrate Negative (Negative) 03/10/18 11:13 Urine Bilirubin Negative (Negative) 03/10/18 11:13 Urine Urobilinogen Negative (Negative) 03/10/18 11:13 Ur Leukocyte Esterase Negative (Negative) 03/10/18 11:13 Urine WBC (Auto) Trace(0-5/hpf) (Absent) 03/10/18 11:13 Urine RBC (Auto) 1+(3-5/hpf) (Absent) A 03/10/18 11:13 Ur Squamous Epith Cells Present (Absent) A 03/10/18 11:13 Urine Bacteria 1+ (Absent) A 03/10/18 11:13 Urine Glucose 1+(50 mg/dl) (Negative) A 03/10/18 11:13 Urine Ascorbic Acid * (Negative) A 03/10/18 11:13 Vag Amniotic Fld Detect Positive 03/10/18 09:30 Blood Type B Positive 03/10/18 10:50 Antibody Screen Negative 03/10/18 10:50 Non stress test this am is reactive, Cat 1 .] Assessment: [Lungs CTA b/l, no CVA tenderness b/l CV RRR Abdomen soft Non tender, gravid, palpable movement. Pelvic exam deferred. Bedside ultrasound revealed cephalic presentation] Plan: [Continue current care, monitor for s/sx of chorio or labor.]
[2018-03-14] MEDS: ValACYclovir (*) 1 GM TAB PO SCH (21:26)
[2018-03-14] MEDS: DOXYLAMINE SUCCINATE 25 MG PO PRN (21:26)
[2018-03-15] MEDS: Amoxicillin PO (*) 875 MG TAB PO SCH ×2 (09:03→19:55)
[2018-03-15] MEDS: DOXYLAMINE SUCCINATE 25 MG PO PRN (19:56)
[2018-03-15] MEDS: ValACYclovir (*) 1 GM TAB PO SCH (19:56)
--- NOTE | 2018-03-15 22:41 | PN ---
Progress Note - Progress Note Date of Service: 03/15/18 SOAP: Subjective: Pt here with PPROM, now day #6, 34+3 wks EGA. No complaints, active FMs, no VB, minimal fluid leakage. Objective: VS normal, afebrile Abd soft, nontender, gravid NST reactive, no decels, baseline 140 [place]: no ctx Assessment: 34+3 wks, PPROM, no evidence of infection or labor, very reassuring status Plan: Discussed delivery plan again today. Scheduled for induction this Tuesday AM
--- NOTE | 2018-03-16 09:30 | PN ---
Progress Note - Progress Note Date of Service: 03/16/18 SOAP: Subjective: [PT doing ok/planning on induction on 03/17/18 Objective: [T : 98.8 VSS] Uterus: NT no palpable contraction NST : FHT 140 / moderate variability/ + accels/ - decels/ no contractions Assessment: [Pt 33 yo with prom/ abx /steroids given] Plan: []Plan on induction on 03/17/18/ GBS negative/ Had steroids 6 days ago and course of abx to increase latency. Will check BPP today to reassess VENKAT.
[2018-03-16] MEDS: Amoxicillin PO (*) 875 MG TAB PO SCH ×2 (09:36→21:12)
[2018-03-16] MEDS: Magnesium Hydroxide LIQ* 30 ML UDC PO PRN ×2 (14:22→18:31)
[2018-03-16] MEDS: DOXYLAMINE SUCCINATE 25 MG PO PRN (21:12)
[2018-03-16] MEDS: ValACYclovir (*) 1 GM TAB PO SCH (21:12)
[2018-03-17] MEDS: Amoxicillin PO (*) 875 MG TAB PO SCH (08:49)
[2018-03-17] MEDS: Acetaminophen TAB* 325 MG PO PRN ×2 (08:49→14:40)
[2018-03-17] MEDS ORDERED: Misoprostol TAB* 100 MCG VAGINAL ONE ×2 (09:07→13:26)
[2018-03-17] MEDS ORDERED: Misoprostol TAB* 100 MCG ONE (09:13)
--- NOTE | 2018-03-17 09:19 | PN ---
Progress Note - Progress Note Date of Service: 03/17/18 SOAP: Subjective: []33 yo with pprom. plan was faor her to be induced today. Objective: [vitals stable afebrile abdomen nontender ve thick posterior. soft / vertex -2/ re[ported 3 cm but not easy to reach] Assessment: []stanton score is 6 cm Plan: [] will start with prostaglandin/ discussed misoprostol vs cervidil will start with very low dose misoprostol
[2018-03-17] MEDS: Simethicone TAB* 80 MG TAB.CHEW PO PRN (14:58)
[2018-03-17] MEDS ORDERED: Oxytocin in LR* 20 UNITS/1,000 ML BAG IVPB SCH ×2 (17:00→22:00)
[2018-03-17] MEDS: Lactated Ringers 1000 ML Bag* 1,000 ML IV SCH ×2 (17:08→18:00)
[2018-03-17 17:44] LABS: ABS Basophils 0 10^3/ul (0-0.2); ABS Eosinophils 0.1 10^3/ul (0-0.6); ABS Lymphocytes 2.1 10^3/ul (1.0-4.8); ABS Monocytes 1.3 10^3/ul (0-0.8); ABS Neutrophils 6.7 10^3/ul (1.5-7.7); ABS Nucleated RBC 0 10^3/ul; Hematocrit 32 % (35-47); Lymphocyte % 20.8 %; Mean Corpuscular HGB Conc 35 g/dl (31-36); Mean Corpuscular Hemoglobin 32 pg (27-31); Mean Corpuscular Volume 92 fL (80-97); Mean Platelet Volume 7.6 fL (7.4-10.4); Nucleated Red Blood Cells % 0; Platelet Count 221 10^3/ul (150-450); Red Blood Count 3.47 10^6/ul (4.00-5.40); Red Cell Distribution Width 14 % (10.5-15); White Blood Count 10.3 10^3/ul (3.5-10.8)
[2018-03-17] MEDS ORDERED: OBEPIDURAL* 250 ML EPIDURAL ONE (19:06)
[2018-03-17] MEDS ORDERED: Witch Hazel PAD* JAR TOPICAL PRN (21:04)
[2018-03-17] MEDS ORDERED: Acetaminophen TAB* 325 MG PO PRN (21:04)
[2018-03-17] MEDS ORDERED: Dibucaine 1% 28.35 GM TUBE PR PRN (21:04)
[2018-03-17] MEDS ORDERED: Tetan/Diph/Pertus SYR(Tdap)* 0.5 ML SYR(BOOSTRIX) use SYR IM ONE (21:04)
[2018-03-17] MEDS ORDERED: Glycerin ADULT SUPP PR PRN (21:04)
[2018-03-17] MEDS ORDERED: Lidocaine 1%* 5 ML VIAL ONE (21:18)
[2018-03-17] MEDS ORDERED: Lactated Ringers 1000 ML Bag* 1,000 ML IV SCH (22:00)
--- NOTE | 2018-03-17 23:34 | PROCNOTE ---
[facility] OB: Delivery Note - Delivery A Date of : 03/17/18 Time of : 20:42 Weight at : 7 lb 1 oz Score 1 Minute: 9 Score 5 Minutes: 9 Gestational Age in Weeks and Days at Delivery: 34 Weeks and 5 Days Delivery Method: Spontaneous Vaginal Labor: Induced Did Patient attempt ?: N/A, No Previous Amniotic Fluid: Clear Estimated Blood Loss: 400 Anesthesia/Analgesia: CEI for Labor Delivered By: Lew Escamilla Nurse Level of Nursery: Special Care - Perineum Perineal Injury: Periurethral Laceration - repair with 3-0 vicryl wiht bleeding vein . good hemostasis, 2nd Degree - Events Delivery Events of Note: Pitocin During Labor Delivery Events of Note Comment: pt pushed well with steady descent and delivery - Risk for Falls Other Risk for Falls: hx of [place], anemia requiring iron infusions, B12 deficiency
[2018-03-18] MEDS: ValACYclovir (*) 1 GM TAB PO SCH ×2 (00:33→20:40)
[2018-03-18] MEDS: Amoxicillin PO (*) 875 MG TAB PO SCH (00:33)
[2018-03-18] MEDS ORDERED: Ammonia Inhalant* 1 EA AMP ONE (03:40)
[2018-03-18 04:07] LABS: Hematocrit 26 % (35-47); Hemoglobin 8.8 g/dl (12.0-16.0); Mean Corpuscular HGB Conc 34 g/dl (31-36); Mean Corpuscular Hemoglobin 31 pg (27-31); Mean Corpuscular Volume 93 fL (80-97); Mean Platelet Volume 7.6 fL (7.4-10.4); Platelet Count 176 10^3/ul (150-450); Red Blood Count 2.82 10^6/ul (4.00-5.40); Red Cell Distribution Width 14 % (10.5-15); White Blood Count 13.9 10^3/ul (3.5-10.8)
[2018-03-18 04:09] LABS: ABS Basophils 0 10^3/ul (0-0.2); ABS Eosinophils 0.1 10^3/ul (0-0.6); ABS Lymphocytes 2.5 10^3/ul (1.0-4.8); ABS Monocytes 1.7 10^3/ul (0-0.8); ABS Neutrophils 9.6 10^3/ul (1.5-7.7); ABS Nucleated RBC 0 10^3/ul; Eosinophil % 0.8 %; Lymphocyte % 18.2 %; Nucleated Red Blood Cells % 0
[2018-03-18] MEDS: Simethicone TAB* 80 MG TAB.CHEW PO PRN (04:23)
[2018-03-18] MEDS: Ibuprofen TAB* 600 MG PO PRN ×3 (04:28→20:41)
[2018-03-18] MEDS ORDERED: Simethicone TAB* 80 MG TAB.CHEW PO SCH (08:30)
[2018-03-18] MEDS: Ferrous Gluconate TAB* 324 MG TAB PO SCH ×2 (10:20→20:45)
[2018-03-18] MEDS: Docusate CAP* 100 MG PO SCH ×3 (10:20→20:45)
[2018-03-18] MEDS ORDERED: Cyanocobalamin INJ * 1,000 MCG/ML VIAL 1 ML VIAL IM ONE (12:00)
[2018-03-18] MEDS: DOXYLAMINE SUCCINATE 25 MG PO PRN (21:04)
[2018-03-19] MEDS: Ferrous Gluconate TAB* 324 MG TAB PO SCH (09:19)
[2018-03-19] MEDS: Docusate CAP* 100 MG PO SCH ×2 (09:21→13:25)
[2018-03-19 09:41] VITALS: BP 112/62
== END 2018-03-19 14:00 | disposition home or self-care (01) | DRG 560 ==
LOC: MCHOBOUT 08:45 → MCHOB 10:18
PROVIDERS: ADMIT Obstetrics & Gynecology; ATTEND Obstetrics & Gynecology
PROC: 10E0XZZ Delivery of Products of Conception, External Approach (ICD-10-PCS; principal; 2018-03-17)
PROC: 3E033VJ Introduction of Other Hormone into Peripheral Vein, Percutaneous Approach (ICD-10-PCS; 2018-03-17)
PROC: 10907ZC Drainage of Amniotic Fluid, Therapeutic from Products of Conception, Via Natural or Artificial Opening (ICD-10-PCS; 2018-03-17)
PROC: 0KQM0ZZ Repair Perineum Muscle, Open Approach (ICD-10-PCS; 2018-03-17)
DX: O42.113 Preterm premature rupture of membranes, onset of labor more than 24 hours following rupture, third trimester (principal); Z37.0 Single live birth; O99.02 Anemia complicating childbirth; D50.9 Iron deficiency anemia, unspecified; D51.9 Vitamin B12 deficiency anemia, unspecified; O99.284 Endocrine, nutritional and metabolic diseases complicating childbirth; E05.00 Thyrotoxicosis with diffuse goiter without thyrotoxic crisis or storm; O70.1 Second degree perineal laceration during delivery; O90.81 Anemia of the puerperium; D64.9 Anemia, unspecified; Z3A.34 34 weeks gestation of pregnancy
CPT/HCPCS: 36415; 76815; 76819; 81003; 81015; 84112; 85025; 86850; 86900; 86901; 87077; 87086; A9270-GY; J3420; S0191